=== PATIENT | male | born 1935 | race African-American/Black ===

== ENCOUNTER 2016-07-15 08:52 | Emergency (ER) | payer MEDICARE ==
[~2016-07-15] VITALS: Ht 182.9 cm; Wt 67.0 kg
[2016-07-15] MEDS ORDERED: KETOROLAC 60MG/2ML VIAL IM ONE (12:30)
[2016-07-15 12:53] LABS: HEMATOCRIT. 39.5 % (42.0-52.0); HEMOGLOBIN. 12.9 g/dL (14.0-18.0); MEAN CORPUSCULAR HEMOGLOBIN 26.8 pg (28.0-32.0); MEAN CORPUSCULAR HGB CONC 32.6 g/dL (31.0-37.0); MEAN CORPUSCULAR VOLUME 82.3 fL (80.0-94.0); MEAN PLATELET VOLUME 7.5 fl (7.4-10.4); PLATELET 418 x1000/uL (130-400); RED BLOOD CELL COUNT 4.79 mill/uL (4.7-6.1); RED CELL DISTRIBUTION WIDTH 17.1 % (11.6-14.6); WHITE BLOOD COUNT 15.3 x1000/uL (4.5-11.0)
[2016-07-15 12:55] LABS: INR 1.2; PROTHROMBIN TIME 12.8 sec
[2016-07-15 12:56] LABS: DIFFERENTIAL COMMENT 1
[2016-07-15 13:00] LABS: ALANINE AMINOTRANSFERASE 27 IU/L (13-61); ALBUMIN 2.8 g/dL (3.4-5.0); ANION GAP 14; CARBON DIOXIDE 28 mEq/L (21-32); CHLORIDE 102 mEq/L (98-107); INDEX HEMOLYSI 1 (1-3); INDEX ICTERIC 1 (1-4); INDEX LIPEMIC 1 (1-3); UREA NITROGEN BLOOD 19 mg/dL (7-21)
[2016-07-15 13:03] LABS: eGFR > 60 mL/min (>60)
[2016-07-15 13:23] LABS: PLATELET ESTIMATE NORMAL
[2016-07-15] MEDS ORDERED: LISINOPRIL 20MG TABLET PO ONE (13:45)
[2016-07-15] MEDS ORDERED: LORAZEPAM 1MG TABLET PO ONE (13:45)
[2016-07-15] MEDS ORDERED: AMLODIPINE 10MG TABLET PO ONE (13:45)
[2016-07-15] MEDS ORDERED: LEVOFLOXACIN 750MG PREMIX 150 ML IV ONE (14:00)
[2016-07-15 14:34] LABS: CLARITY URINE CLEAR (CLEAR); COLOR URINE YELLOW (YELLOW); GLUCOSE URINE NEGATIVE (NEGATIVE); KETONES URINE TRACE (NEGATIVE); LEUKOCYTE ESTERASE URINE NEGATIVE (NEGATIVE); NITRITE URINE NEGATIVE (NEGATIVE); OCCULT BLOOD URINE NEGATIVE (NEGATIVE); PH URINE 5.5 (4.5-8.0); PROTEIN URINE TRACE (NEGATIVE); SPECIFIC GRAVITY URINE 1.026 (1.005-1.030)
[2016-07-15 14:43] LABS: CREATINE KINASE MB FRACTION 1.9 ng/mL (0.5-3.6)
[2016-07-15 15:12] LABS: SQUAMOUS EPITHELIAL CELL URINE RARE /lpf (RARE/1+)
[2016-07-15 15:13] LABS: BACTERIA URINE TRACE; RBC URINE 0-2 /hpf (0-2)
[2016-07-15 16:44] LABS: LACTIC ACID 2.5 mmol/L (0.4-2.0)
[2016-07-15 17:19] VITALS: BP 141/76
== END 2016-07-15 18:44 | disposition short-term general hospital (02) ==
LOC: ER 13:10 → SUPCPDRO 15:36 → ER 18:44
DX: M54.5 Low back pain (principal); Z85.118 Personal history of other malignant neoplasm of bronchus and lung
CPT/HCPCS: 36415; 71010; 72131; 74176; 80053; 81001; 82550; 82553; 83605; 85025; 85610; 87040; 87077; 87086; 87186; 93005; 96365; 96366; 99285; J1885; J1956